=== PATIENT | male | born 1995 | race Caucasian/White ===

== ENCOUNTER 2016-11-30 06:55 | Emergency (ER) | payer OTHER ==
[~2016-11-30] VITALS: Ht 182.9 cm; Wt 149.3 kg
[~2016-11-30 06:55] MED LIST: ZOFRAN4 MG PO
[2016-11-30 07:39] VITALS: BP 130/80
== END 2016-11-30 07:40 | disposition home or self-care (01) ==
LOC: EME 06:55
DX: S10.81XA Abrasion of other specified part of neck, initial encounter (principal); Y04.0XXA Assault by unarmed brawl or fight, initial encounter; Y99.0 Civilian activity done for income or pay; Y92.239 Unspecified place in hospital as the place of occurrence of the external cause
CPT/HCPCS: 99281; 99283

== ENCOUNTER 2016-12-21 01:09 | Emergency (ER) | payer OTHER ==
[~2016-12-21] VITALS: Ht 182.9 cm; Wt 148.6 kg
[2016-12-21 03:19] VITALS: BP 143/80
== END 2016-12-21 03:19 | disposition home or self-care (01) ==
LOC: EME 01:09 → EXP 01:09
DX: S00.83XA Contusion of other part of head, initial encounter (principal); Y09 Assault by unspecified means; Y92.239 Unspecified place in hospital as the place of occurrence of the external cause; Y99.0 Civilian activity done for income or pay
CPT/HCPCS: 70486; 99281; 99284